=== PATIENT | female | born 1955 | race Caucasian/White ===

== ENCOUNTER → 2016-12-02 | Outpatient (CLI) | payer MEDICARE, OTHER ==
--- NOTE | 2016-12-02 08:45 | RAD ---
Indication chest congestion with productive cough for one month. Fever. PA and lateral views of the chest were obtained. Comparison is made to the most recent examination available 01/30/2016. There are background changes compatible with emphysema and/or fibrosis. There are additional parenchymal changes in the right upper lobe which are probably reflective of scar secondary to an inflammatory process as demonstrated on the previous exam. There is now a patchy infiltrate, suggesting pneumonia, in the left lower lobe new relative to the previous exam. Follow-up imaging advised assessing resolution and/or stability. IMPRESSION: Patchy infiltrate suggesting pneumonia in the left lower lobe. Additional, probably chronic changes are additionally noted as outlined above. Follow-up imaging advised
== END | disposition home or self-care (01) ==
LOC: DXRADRC 07:54
PROVIDERS: ATTEND Physician Assistant Medical
DX: R91.8 Other nonspecific abnormal finding of lung field (principal); R09.89 Other specified symptoms and signs involving the circulatory and respiratory systems; R50.9 Fever, unspecified; R05 Cough
CPT/HCPCS: 71020

== ENCOUNTER → 2017-05-28 | Outpatient (CLI) | payer MEDICARE, OTHER ==
--- NOTE | 2017-05-28 14:53 | RAD ---
Chest, 2 views, 05/28/2017: History: Chest congestion Comparison is made to a study from 12/02/2016. A left Port-A-Cath extends to the level of the atriocaval junction. The heart size is normal. There is calcific plaquing of aorta. There appear to be emphysematous changes in the upper lobes, more so on the left. No acute infiltrate is seen. There is no evidence of pleural fluid. IMPRESSION: 1. A left Port-A-Cath is in place. 2. Emphysema. 3. No acute cardiopulmonary abnormality is detected.
== END | disposition home or self-care (01) ==
LOC: DXRAD 14:19
PROVIDERS: ATTEND Physician Assistant Medical
DX: J43.9 Emphysema, unspecified (principal); I70.0 Atherosclerosis of aorta
CPT/HCPCS: 71020